=== PATIENT | male | born 1975 | race Two or more races ===

== ENCOUNTER 2019-04-12 01:22 | Emergency (ER) | payer OTHER ==
[~2019-04-12] VITALS: Ht 180.3 cm; Wt 113.4 kg
[2019-04-12 02:53] VITALS: BP 122/66
== END 2019-04-12 02:54 | disposition left against medical advice (07) ==
LOC: ER 01:23
DX: F41.9 Anxiety disorder, unspecified (principal); Z53.21 Procedure and treatment not carried out due to patient leaving prior to being seen by health care provider
CPT/HCPCS: 93005

== ENCOUNTER 2019-05-16 14:54 | Emergency (ER) | payer OTHER ==
[~2019-05-16] VITALS: Ht 182.9 cm; Wt 114.8 kg
[2019-05-16 16:01] LABS: Basophils # (auto) 0 uL; Basophils % (auto) 0.6 % (0.0-2.0); Eosinophils # (auto) 0.2 uL; Eosinophils % (auto) 4.1 % (0.0-7.0); Hematocrit 47.4 % (41.0-53.0); Lymphocytes # (auto) 1.8 uL; Lymphocytes % (auto) 37.8 % (10.0-50.0); Mean Corpuscular Hemoglobin 30.9 pg (28.0-32.0); Mean Corpuscular Hgb Conc. 33.7 g/dL (32.0-36.0); Mean Corpuscular Volume 91.8 fL (80.0-100.0); Monocytes # (auto) 0.5 uL; Monocytes % (auto) 9.9 % (0.0-12.0); Neutrophils # (auto) 2.3 uL; Neutrophils % (auto) 47.6 % (37.0-80.0); Nucleated Red Blood Cells % 0.1 %; Platelet Count (auto) 240 10^3/uL (140-450); Red Blood Cells 5.16 10^6/uL (4.5-5.90); Red Cell Distribution Width 13.1 % (11.8-14.3); White Blood Cell 4.8 10^3/uL (4.4-10.8)
[2019-05-16 16:08] LABS: Calcium 8.3 mg/dL (8.5-10.1); Chloride 109 mmol/L (98-107); Potassium 3.8 mmol/L (3.5-5.1); Sodium 140 mmol/L (136-145)
[2019-05-16 16:16] LABS: Alanine Aminotransferase 64 U/L (16-61); Albumin 4.2 g/dL (3.4-5.0); Alkaline Phosphatase 93 U/L (45-117); Anion Gap 5 (5-15); Aspartate Aminotransferase 35 U/L (15-37); BUN/Creatinine Ratio 10.1; Bilirubin, Total 0.5 mg/dL (0.2-1.0); Blood Urea Nitrogen 10 mg/dL (7-18); Carbon Dioxide 26 mmol/L (21-32); GFR African American 106 mL/min; GFR Non-African American 88 mL/min; Glucose 109 mg/dL (74-106)
[2019-05-16 16:33] LABS: Urine Bacteria NONE SEEN /hpf (None Seen); Urine Blood Negative /uL (Negative); Urine Specific Gravity 1.017 (1.001-1.035); Urine WBC 1 /hpf (0 - 3)
[2019-05-16] MEDS ORDERED: ASPirin 81 mg TAB PO ONE (21:45)
[2019-05-16 22:45] VITALS: BP 146/76
== END 2019-05-16 23:23 | disposition home or self-care (01) ==
LOC: ER 15:02
DX: R07.89 Other chest pain (principal); F41.0 Panic disorder [episodic paroxysmal anxiety]; F43.10 Post-traumatic stress disorder, unspecified
CPT/HCPCS: 36415; 71046; 80053; 81001; 83880; 84484; 85025; 93005

== ENCOUNTER 2019-06-24 06:03 | Emergency (ER) | payer OTHER ==
[~2019-06-24] VITALS: Ht 182.9 cm; Wt 109.8 kg
[2019-06-24 06:20] VITALS: BP 151/96
== END 2019-06-24 08:02 | disposition home or self-care (01) ==
LOC: ER 06:06
DX: F41.0 Panic disorder [episodic paroxysmal anxiety] (principal); F32.9 Major depressive disorder, single episode, unspecified; E78.5 Hyperlipidemia, unspecified; Z76.0 Encounter for issue of repeat prescription; Z86.39 Personal history of other endocrine, nutritional and metabolic disease

== ENCOUNTER 2021-04-01 21:24 | Emergency (ER) | payer OTHER | END 2021-04-01 23:12 | disposition left against medical advice (07) | LOC: ER 21:24 | DX: F41.9 Anxiety disorder, unspecified (principal); Z53.21 Procedure and treatment not carried out due to patient leaving prior to being seen by health care provider ==